=== PATIENT | male | born 1965 | race Caucasian/White ===

== ENCOUNTER → 2016-10-28 | Outpatient (CLI) | payer BC ==
--- NOTE | 2016-10-28 14:48 | PCVCIMAG ---
APPROVED REPORT Study performed: 10/28/2016 13:01:09 EXAM: Comprehensive 2D, Doppler, and color-flow Echocardiogram Patient Location: Echo lab Status: routine Other Information Study Quality: Excellent Indications Cardiomegaly HISTORY OF PERICARDITIS 2D Dimensions LVEF(%): 64.92 (>50%) IVSd: 6.95 (7-11mm)LVOT Diam: 20.68 (18-24mm) LVDd: 43.07 mm PWd: 9.18 (7-11mm)Ascending Ao: 31.38 (22-36mm) LVDs: 27.88 (25-40mm) Left Atrium: 37.04 (27-40mm) Aortic Root: 24.98 mm LV Single Plane 4CH: 53.53 % LV Single Plane 2CH: 66.07 %Hernandez's LVEF: 59.80 % Biplane EF: 60.5 % Volumes Left Atrial Volume (Systole) Single Plane 4CH: 44.66 mLSingle Plane 2CH: 65.77 mL LA ESV Index: 25.00 mL/m2 Aortic Valve AoV Peak Ananth.: 1.38 m/s AO Peak Gr.: 7.67 mmHgLVOT Max P.00 mmHg LVOT Max V: 1.00 m/s RONALD Vmax: 2.42 cm2 Mitral Valve E/A Ratio: 1.4 MV Decel. Time: 164.54 ms MV E Max Ananth.: 0.95 m/s MV A Ananth.: 0.69 m/s IVRT: 93.43 ms TDI E/Lateral E': 6.79E/Medial E': 8.64 Medial E' Ananth.: 0.11 m/s Lateral E' Ananth.: 0.14 m/s Pulmonary Valve PV Peak Gr.: 5.58 mmHg Pulmonary Vein P Vein S: 0.40 m/sP Vein A: 0.37 m/s P Vein D: 0.45 m/sP Vein A Dur.: 90.0 msec P Vein S/D Ratio: 0.89 Tricuspid Valve TR Peak Ananth.: 1.92 m/s TR Peak Gr.: 14.78 mmHg TV Vmax: 0.55 m/s Left Ventricle The left ventricle is normal size. There is normal LV segmental wall motion. There is normal left ventricular wall thickness. Left ventricular systolic function is normal. The left ventricular ejection fraction is within the normal range. LVEF is 60-65%. The left ventricular diastolic function is normal. Right Ventricle The right ventricle is normal size. The right ventricular systolic function is normal. Atria The left atrium size is normal. The right atrium size is normal. Aortic Valve The aortic valve is normal in structure. No aortic regurgitation is present. There is no aortic valvular stenosis. Mitral Valve The mitral valve is normal in structure. There is no mitral valve regurgitation noted. No evidence of mitral valve stenosis. Tricuspid Valve The tricuspid valve is normal in structure. There is trivial tricuspid valve regurgitation noted with a PA pressure of 22mmHg. Pulmonic Valve The pulmonary valve is normal in structure. There is no pulmonic valvular regurgitation. Great Vessels The aortic root is normal in size. The ascending aorta is normal in size. IVC is normal in size and collapses with >50% inspiration Pericardium There is no pericardial effusion. There is no pleural effusion. <Conclusion> 1. Normal echocardiogram with Doppler 2. Structural valve disease was absent. No significant regurgitant or stenotic lesions. 3. Pulmonary artery pressure could not be reliably ascertaiened 4. No pericardial effusion
== END | disposition home or self-care (01) ==
LOC: PCVCIMAG 12:58
PROVIDERS: ATTEND Internal Medicine
DX: I07.1 Rheumatic tricuspid insufficiency (principal); I30.9 Acute pericarditis, unspecified; E78.5 Hyperlipidemia, unspecified; I51.7 Cardiomegaly
CPT/HCPCS: 93005; 93306; G0463